=== PATIENT | male | born 1945 | race Caucasian/White ===

== ENCOUNTER 2019-03-27 07:14 | Day surgery (SDC) | payer OTHER, MEDICARE ==
[2019-03-27] MEDS ORDERED: Sodium Chloride 0.9% 10 ML Syringe FLUSH PRN (07:30)
[2019-03-27] MEDS: Sodium Chloride 0.9% 1,000 ML IV SCH (08:05)
[2019-03-27] MEDS ORDERED: Metoclopramide 10 MG/2 ML SDV IV PRN (09:00)
[2019-03-27] MEDS ORDERED: Propofol 1,000 MG/100 ML SDV ONE (11:15)
[2019-03-27] MEDS ORDERED: Midazolam 1 MG/ML 2 ML SDV ONE (11:15)
--- NOTE | 2019-03-27 12:35 | OR ---
DATE OF OPERATION: 03/27/2019 SURGEON: Perry Rodriguez MD PREOPERATIVE DIAGNOSIS: Surveillance colonoscopy. POSTOPERATIVE DIAGNOSIS: Surveillance colonoscopy. PROCEDURE: Colonoscopy with polypectomy. ANESTHESIA: MAC. ESTIMATED BLOOD LOSS: Minimal. COMPLICATIONS: None. INDICATION FOR THE PROCEDURE: The patient is a 73-year-old male who has had previous polyps on a colonoscopy. Last colonoscopy was 5 years ago and was normal. The patient is here today for surveillance colonoscopy. DESCRIPTION OF PROCEDURE: Informed consent was obtained from the patient. The patient was taken to operating room, placed on table in left lateral decubitus position. Monitored anesthesia care was administered. Digital rectal exam performed and was normal. Colonoscope then advanced through the anus directed towards the cecum. Cecum was reached and identified by appendiceal orifice and ileocecal valve. Colonoscope was slowly withdrawn. He did have some mild sigmoid diverticulosis, otherwise did have a small sessile polyp in the sigmoid as well. This was removed with hot forceps polypectomy. The colonoscope then further withdrawn. Air was suctioned from the colon as well. Rectum also appeared unremarkable. Colonoscope then withdrawn. FINDINGS: Sigmoid diverticulosis as well as sigmoid polyp. RECOMMENDATIONS: Would recommend repeat surveillance colonoscopy in 5 years due to sigmoid polyp. We will also follow up on biopsy results. JYOTHI /[id number]
== END 2019-03-27 12:35 | disposition home or self-care (01) ==
LOC: LB.SDS 07:14
PROVIDERS: ATTEND Surgery
DX: Z12.11 Encounter for screening for malignant neoplasm of colon (principal); D12.5 Benign neoplasm of sigmoid colon; K57.30 Diverticulosis of large intestine without perforation or abscess without bleeding; I10 Essential (primary) hypertension; Z86.010 Personal history of colon polyps
CPT/HCPCS: 45384; 88305; G0121; J2250; J2704; J7030